=== PATIENT | male | born 2000 | race Caucasian/White ===

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

== ENCOUNTER 2018-10-27 14:50 | Emergency (ER) | payer MEDICAID, OTHER ==
[2018-10-27] MEDS ORDERED: ZIPRASIDONE MESYLATE INJ/PF 20 MG SDV IM ONE (15:10)
[2018-10-27] MEDS ORDERED: LIDOCAINE 1%/EPINEPHRINE INJ 20 ML VIAL INJ ONE (15:10)
[2018-10-27] MEDS ORDERED: DIPH/PERTUSS(ACELL)/TETANUS VAC/PF 0.5 ML SYR (>=10YO) IM ONE ×2 (15:10→19:49)
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
[2018-10-27 15:43] LABS: ABSOLUTE BASOPHILS # (AUTO) 0.1 10^3/uL (0.0-0.2); ABSOLUTE EOSINOPHILS # (AUTO) 0.7 10^3/uL (0.0-0.6); ABSOLUTE LYMPHOCYTES (AUTO) 1.6 10^3/uL (0.5-4.7); ABSOLUTE MONOCYTES (AUTO) 0.8 10^3/uL (0.1-1.4); ABSOLUTE NEUT (AUTO) 5.4 10^3/uL (1.7-8.2); BASOPHILS % (AUTO) 0.7 % (0-2); HEMATOCRIT 46.2 % (37.9-51.0); HEMOGLOBIN 16.2 g/dL (13.5-17.0); LYMPHOCYTES % (AUTO) 19.1 % (13-45); MEAN CORPUSCULAR HEMOGLOBIN 31.6 pg (27.0-33.4); MEAN CORPUSCULAR HGB CONC 35.2 g/dL (32.0-36.0); MEAN CORPUSCULAR VOLUME 90 fl (80-97); PLATELET COUNT 198 10^3/uL (150-450); RED BLOOD COUNT 5.14 10^6/uL (4.35-5.55); RED CELL DISTRIBUTION WIDTH 13.8 % (11.5-14.0); SEGMENTED NEUTROPHILS % (AUTO) 63.2 % (42-78); TOTAL CELLS COUNTED % (AUTO) 100 %; WHITE BLOOD COUNT 8.5 10^3/uL (4.0-10.5)
[2018-10-27 16:04] LABS: ALANINE AMINOTRANSFERASE 19 U/L (10-40); ALBUMIN 4.3 g/dL (3.7-5.6); ALCOHOL 49 mg/dL (NONE DETECTED); ALKALINE PHOSPHATASE 49 U/L (65-260); ANION GAP 10 (5-19); ASPARTATE AMINO TRANSFERASE 18 U/L (10-45); BILIRUBIN,DIRECT 0.1 mg/dL (0.0-0.4); BILIRUBIN,TOTAL 0.4 mg/dL (0.2-1.3); BLOOD UREA NITROGEN 8 mg/dL (7-20); CALCIUM 9.4 mg/dL (8.4-10.2); CARBON DIOXIDE 27 mmol/L (22-30); CHLORIDE 107 mmol/L (98-107); GLUCOSE 88 mg/dL (75-110); POTASSIUM 4.2 mmol/L (3.6-5.0); SODIUM 143.7 mmol/L (137-145); TOTAL PROTEIN 6.5 g/dL (6.3-8.2)
[2018-10-27 16:05] LABS: ACETAMINOPHEN < 10 ug/mL (10-30); SALICYLATE < 1.0 mg/dL (2.0-20.0)
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
--- NOTE | 2018-10-27 18:14 | EKG REPORT ---
SEVERITY:- NORMAL ECG - SINUS RHYTHM : Confirmed by: Cori Quevedo MD 27-Oct-2018 18:14:20
[2018-10-27] MEDS ORDERED: LIDOCAINE 1%/EPINEPHRINE INJ 20 ML VIAL ONE (18:46)
[2018-10-27 19:41] LABS: APPEARANCE,URINE CLEAR; BILIRUBIN,URINE NEGATIVE (NEGATIVE); COLOR,URINE STRAW; GLUCOSE, URINE NEGATIVE (NEGATIVE); KETONES,URINE NEGATIVE (NEGATIVE); LEUKOCYTE ESTERASE,URINE NEGATIVE (NEGATIVE); NITRITE,URINE NEGATIVE (NEGATIVE); PROTEIN,URINE NEGATIVE (NEGATIVE); URINE SPECIFIC GRAVITY 1.009; UROBILINOGEN,URINE NEGATIVE mg/dL (<2.0)
[2018-10-27 19:55] LABS: URINE AMPHETAMINES SCREEN NEGATIVE; URINE BARBITURATES SCREEN NEGATIVE; URINE BENZODIAZEPINES SCREEN NEGATIVE; URINE COCAINE SCREEN NEGATIVE; URINE MARIJUANA (THC) SCREEN UNCONFIRMED POSITIVE; URINE METHADONE SCREEN NEGATIVE; URINE PHENCYCLIDINE SCREEN NEGATIVE
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
[2018-10-28 17:47] VITALS: BP 118/61
== END 2018-10-28 17:10 | disposition home or self-care (01) ==
LOC: ER 14:50
PROC: 0HQDXZZ Repair Right Lower Arm Skin, External Approach (ICD-10-PCS; principal; 2018-10-27)
DX: S51.811A Laceration without foreign body of right forearm, initial encounter (principal); F10.920 Alcohol use, unspecified with intoxication, uncomplicated; F41.9 Anxiety disorder, unspecified; R45.1 Restlessness and agitation; X78.1XXA Intentional self-harm by knife, initial encounter
CPT/HCPCS: 93005; 99285; 96372; 90471; 36415; 80307 ×4; 85025; 80053; 81001; 90715; 93010; 12002; J3486

== ENCOUNTER 2018-12-02 20:57 | Emergency (ER) | payer MEDICAID ==
--- NOTE | 2018-12-02 21:28 | EKG REPORT ---
SEVERITY:- BORDERLINE ECG - SINUS ARRHYTHMIA, RATE 64-96 BORDERLINE PROLONGED QT INTERVAL : Confirmed by: Cori Quevedo MD 02-Dec-2018 21:27:23
--- NOTE | 2018-12-02 22:07 | ER Document Report ---
ED General - General Stated Complaint: PSYCH/IVC Time Seen by Provider: 12/02/18 22:06 Notes: Patient is a 18-year-old male who was sent on vomiting, paperwork because of concerns for possible suicidal ideations. Patient says that he can augment his girlfriend. He became upset. He says he was not at all suicidal. He says his roommate was drunk and started pestering him and calling his girlfriend a "bitch". Patient said he then became very upset and started yelling at his roommate and asked him not to call her bridge. He then got a further argument with his roommate and then left the house. 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 He said he want to get his drill get his stuff so that he had it in case he had to leave the house in this way still had his equipment for when he went to work tomorrow. He also had a utility knife at that time. Patient says that his roommate saw the knife and said that he was worried that he could be suicidal. Patient is not suicidal. Patient said he therefore became upset and threw the knife outside. Patient admits that he then yelled at his roommate "you would drive some crazy to the point that they would be suicidal". Patient says he did not mean in any way with this, that he himself was suicidal. Patient did not do anything to hurt himself. The roommate then called mobile crisis and mobile crisis came and evaluated the patient. Patient was eventually placed on IVC papers and brought to the ER. Patient currently denies any suicidal thoughts. He did try 2 weeks ago after an argument with his girlfriend and was drunk and upset. He says it was a stupid thing that he did and he was drunk at that time and said that he was not truly suicidal. Patient says that he is not at all suicidal now and says that he really wants to go home by morning time because he wants to meet up with his new boss at 5 AM so he can start his new job. He says if he misses meeting his boss and he will probably lose this job which he really needs. TRAVEL OUTSIDE OF THE [place] IN LAST 30 DAYS: No - Related Data Allergies/Adverse Reactions: red dye Allergy (Verified 10/24/17 13:58) methylphenidate [From Concerta] Adverse Reaction (Verified 10/24/17 13:58) Past Medical History - Social History Smoking Status: Unknown if Ever Smoked Frequency of alcohol use: Occasional Drug Abuse: None Family History: Arthritis, CAD, COPD, CVA, DM, Hyperlipidemia, Hypertension, Malignancy Pulmonary Medical History: Reports: Hx Asthma Renal/ Medical History: Denies: Hx Peritoneal Dialysis Psychiatric Medical History: Reports: Hx Bipolar Disorder, Hx Post Traumatic Stress Disorder, Hx Schizophrenia - paranoia - Immunizations Immunizations up to date: Yes Review of Systems - Review of Systems Notes: My Normal Review Basic REVIEW OF SYSTEMS: CONSTITUTIONAL : Denies fever, chills, or sweats. Denies recent illness. EENT: Denies eye, ear, throat, or mouth pain or symptoms. Denies nasal or sinus congestion. RESPIRATORY: Denies cough, cold, or chest congestion. Denies shortness of breath, difficulty breathing, or wheezing. GASTROINTESTINAL: Denies abdominal pain. Denies nausea, vomiting, or diarrhea. MUSCULOSKELETAL: Denies neck or back pain or joint pain or swelling. SKIN: Denies rash or skin lesions. NEUROLOGICAL: Denies altered mental status or loss of consciousness. PSYCHIATRIC: Admits to becoming agitated tonight. He denies being suicidal or wanting to hurt himself. ALL OTHER SYSTEMS REVIEWED AND NEGATIVE. Physical Exam - Vital signs Vitals: Temp Pulse Resp BP Pulse Ox 98.7 F 74 16 119/63 100 12/03/18 00:19 12/03/18 00:19 12/03/18 00:19 12/03/18 00:19 12/03/18 00:19 - Notes Notes: General Appearance: Well nourished, alert, cooperative, no acute distress, no obvious discomfort. Well-appearing. Vitals: reviewed, See vital signs table. Eyes: PERRL, EOMI, Conjuctiva clear Mouth: No decreasd moisture Lungs: No wheezing, No rales, No rhonci, No accessory muscle use, good air exchange bilaterally. Heart: Normal rate, Regular rythm, No murmur, no rub Abdomen: Normal BS, soft, No rigidity, No abdominal tenderness, No guarding, no rebound, no abdominal masses, no organomegaly Extremities: s good pulses in all extremities, no swelling or tenderness in the extremities, no edema. Skin: warm, dry, appropriate color, no rash Neuro: speech clear, oriented x 3, normal affect, responds appropriately to questions. Psychiatric: Patient has good linear thought process. Demonstrates good organized thoughts. When I initially enter the room he is easily agitated as he is concerned he will lose his job but as I talked to him he became very calm was able to handle a normal conversation with me. He is not tearful or sad a ppearing. He maintains good eye contact. Course - Re-evaluation Re-evalutation: 12/03/18 04:03 Since patient has been here he has been upfront with me. He does admit to previously cutting himself several weeks ago. He says he was drunk at that time. Says he did not really want hurt himself. He did discuss the fact that he got in an argument with his girlfriend on the phone and then his roommate who is drunk kept badgering him about it to the point where he became upset and they felt he was suicidal. Patient says the reason why he had a box lining machine feeder in his hand was because he has to go to work tomorrow and he was cutting open the box to the drill he just bought for work. Patient does admit that he said to his friend "you would drive someone to the point that they would want to kill himself". Patient says he said this because his roommate was very drunk and kept bothering him. He is said he did not mean this in a way that he would actually hurt himself. The entire time the patient has been in the ER he has been very worried about making it to work on time in the morning. I did keep him here for several hours and reassessed him and talked to him again. Patient is not tearful. He does not appear suicidal at all. He is very appropriate when I talked to him. He again is requesting that he leaves here so he can get to work by 5 AM. Is currently 4 AM. I will discharge him as I do not feel he is suicidal. He seems focused on getting to work on time as he says this is a new job and he really needs it and this would be his first day at work. I did call and speak with Smitha Siddiqi who is the mobile bank worker who evaluated the patient. She said initially she was going to let him come voluntarily however the reason why she changed him to IVC was because she found out later that the patient had cut himself in the past. She said initially the patient said that the cut his arm was not a big deal and was not resulted in mental health. The patient says he said this because he did not feel as a result of mental health and was more because he had become upset after becoming drunk and therefore had made the mistake of cutting himself. Patient did not cut himself today. Did not do anything to hurt himself today. He continues to deny being suicidal and does not have a plan. Being that I have watched the patient now for several hours and that he has remained stable and continues to deny wanting to hurt himself and is adamant about trying to work I feel that it is unlikely that he will hurt himself. I informed patient that he must return to the ER immediately if he ever has any thoughts of suicide or wanting to hurt himself. Patient agrees with plan and will be discharged home. Dictation of this chart was performed using voice recognition software; therefore, there may be some unintended grammatical errors. 12/03/18 07:08 - Vital Signs Vital signs: Temp Pulse Resp BP Pulse Ox 98.2 F 88 20 102/70 97 12/03/18 04:30 12/03/18 04:30 12/03/18 04:30 12/03/18 04:30 12/03/18 04:30 - EKG Interpretation by Me Additional EKG results interpreted by me: 12/02/18 22:06 EKG is reviewed and interpreted by me. EKG shows sinus rhythm with a rate of [address] segment elevation or depression. No ischemic T wave inversions. SC interval, QRS duration, QT intervals are within normal range. No old EKG available for comparison. Discharge - Discharge Clinical Impression: Agitation Condition: Good Disposition: HOME, SELF-CARE Additional Instructions: Please return to the ER immediately if you develop any thoughts of suicide or if you feel that you are becoming depressed. Forms: Return to Work
[2018-12-03 04:30] VITALS: BP 102/70
== END 2018-12-03 04:31 | disposition home or self-care (01) ==
LOC: ER 20:57
DX: R45.1 Restlessness and agitation (principal)
CPT/HCPCS: 93005; 93010; 99285